=== PATIENT | male | born 1965 | race African-American/Black ===

== ENCOUNTER 2017-08-18 16:41 | Emergency (ER) | payer OTHER ==
[~2017-08-18] VITALS: Ht 175.3 cm; Wt 92.7 kg
[2017-08-18 17:45] LABS: BASOPHIL (%) 0.4 % (0-1); EOSINOPHIL (%) 1.2 % (0-5); EOSINOPHIL COUNT 0.1 K/uL (0-0.3); HEMATOCRIT 44.3 % (38.0-50.0); HEMOGLOBIN 14.7 G/DL (12.5-16.6); IMMATURE GRANULOCYTE (%) 0.2 % (0.0-0.7); LYMPHOCYTE (%) 28.4 % (15-42); LYMPHOCYTE COUNT 1.6 K/uL (1.0-2.8); MCH 28.9 PG (29.0-34.0); MCHC 33.2 G/DL (30.0-36.0); MCV 87.2 FL (86-99); MONOCYTE (%) 7.1 % (3-12); MONOCYTE COUNT 0.4 K/uL (0-0.8); NEUTROPHIL (%) 62.7 % (45-76); NEUTROPHIL COUNT 3.5 K/uL (1.8-6.4); PLATELET COUNT 291 K/uL (156-360); RBC DIS.WIDTH-CV 11.7 % (11.8-14.6); RBC DIS.WIDTH-SD 37.3 % (39-53); RED BLOOD COUNT 5.08 M/uL (4.00-5.50); WHITE BLOOD COUNT 5.6 K/uL (4.1-10.2)
[2017-08-18 17:52] LABS: PTT 31.9 SEC (25-37)
[2017-08-18 17:57] LABS: CHLORIDE 106 mEq/L (99-109); POTASSIUM 4.3 mEq/L (3.7-5.4); SODIUM 141 mEq/L (136-147)
[2017-08-18 18:01] LABS: GLUCOSE 117 mg/dL (70-99); TOTAL BILIRUBIN 0.5 mg/dL (0.0-1.0); TOTAL PROTEIN 7.1 g/dL (6.4-8.3)
[2017-08-18 18:03] LABS: ALKALINE PHOSPHATASE 72 IU/L (3-129); CREATININE 1.2 mg/dL (0.6-1.3); GFR ESTIMATE (CALCULATED) > 59 mL/min/ (58.99-99999); SERUM ETHYL ALCOHOL < 10 mg/dL
[2017-08-18 18:04] LABS: UREA NITROGEN (BUN) 15 mg/dL (9-23)
[2017-08-18 18:05] LABS: AST (GOT) 30 IU/L (2-34)
[2017-08-18 18:06] LABS: ALT (GPT) 53 IU/L (3-49)
[2017-08-18 18:08] LABS: TROP-I INTERPRETATION NEGATIVE; TROPONIN-I < 0.01 ng/mL (0.0-0.30)
[2017-08-18] MEDS ORDERED: ZOFRAN ODT4 MG PO (18:39)
[2017-08-18 20:01] VITALS: BP 149/98
== END 2017-08-18 20:03 ==
LOC: EME 16:41
PROVIDERS: Emergency Medicine
DX: R42 Dizziness and giddiness (principal); R11.2 Nausea with vomiting, unspecified; R51 Headache; I10 Essential (primary) hypertension; E78.5 Hyperlipidemia, unspecified; Z87.442 Personal history of urinary calculi; Z87.891 Personal history of nicotine dependence
CPT/HCPCS: 70450; 80053; 84484; 85025; 85610; 85730; 93005; 99281; 99285; G0480; J1200; J2765; J7040